=== PATIENT | female | born 2000 | race Caucasian/White ===

== ENCOUNTER 2025-01-23 02:10 | Emergency (ER) | payer OTHER, SELFPAY ==
[2025-01-23] VITALS (8 sets, daily range): BP systolic 113–128; BP diastolic 55–80; PULSE 70–105; RESP 13–18; TEMP 36.1–36.9; O2SAT 95–100; BMI 26.7
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
[2025-01-23] MEDS: diphenhydrAMINE HCL 25 MG CAPSULE 50 MG PO (02:33)
[2025-01-23] MEDS: LORazepam 1 MG TABLET 2 MG PO (02:33)
--- NOTE | 2025-01-23 03:24 | MHC.EDTECH ---
pt refused blood work at this time, they stated they will do them when they wake up and apologized. RNs aware.
[2025-01-23 04:32] LABS: Basophils Absolute Auto 0.1 X10*3/uL (0.0-0.2); Basophils Percent Auto 0.5 % (0-2); Eosinophils Absolute Auto 0.2 X10*3/uL (0.0-0.4); Eosinophils Percent Auto 1.6 % (0-4); Hemoglobin 11.7 g/dl (12.0-16.0); Imm Gran Abs Auto 0.03 X10*3/uL (0.00-0.03); Imm Gran Pct Auto 0.3 % (0.0-0.4); Lymphocytes Absolute Auto 1.1 X10*3/uL (1.2-4.9); Lymphocytes Percent Auto 10.4 % (20-40); MANUAL DIFF FLAG NO; Mean Corpuscular HGB Conc 33.4 g/dl (31.0-35.0); Mean Corpuscular Hemoglobin 29.5 pg (27.0-33.0); Mean Corpuscular Volume 88.2 fL (80.0-98.0); Mean Platelet Volume 8.6 fL (9.4-12.3); Monocytes Absolute Auto 0.6 X10*3/uL (0.1-1.2); Monocytes Percent Auto 5.8 % (2-11); Neutrophils Absolute Auto 8.5 x10*3/uL (2.0-8.3); Neutrophils Percent Auto 81.4 % (45-73); Platelet Count 286 X10*3/uL (160-400); Red Blood Count 3.97 X10*6/uL (4.20-5.50); Red Cell Distribution Width 13.9 % (11.0-16.0); White Blood Count 10.5 X10*3/uL (4.8-10.8)
[2025-01-23 05:01] LABS: Alanine Aminotransferase 10 U/L (0-31); Albumin Level 4.3 g/dL (3.5-5.0); Alkaline Phosphatase 82 U/L (39-117); Anion Gap 13 (12-20); Aspartate Amino Transferase 21 U/L (5-31); Bilirubin Direct 0.2 mg/dL (0.0-0.5); Bilirubin Total 0.4 mg/dL (0.0-1.0); Blood Urea Nitrogen 9 mg/dL (9-16); Calcium 9.3 mg/dL (8.4-10.2); Carbon Dioxide 24 mmol/L (22-29); Chloride 104 mmol/L (96-108); Creatinine Clr Calc Pharmacy 146.1; Estimated Glomerular Filt Rate > 60; Ethanol < 10 mg/dL; Glucose Random 101 mg/dL (60-115); HCG Quantitative < 2 mIU/mL; Magnesium 2.1 mg/dL (1.6-2.6); Potassium 3.7 mmol/L (3.3-5.1); Sodium 137 mmol/L (135-145); Total Protein 7.3 g/dL (6.5-8.0)
--- NOTE | 2025-01-23 08:26 | PC.NURSE ---
pt currently sleeping, rr equal/non labored, vss, call veliz within reach, plan of care ongoing
--- NOTE | 2025-01-23 10:59 | PC.NURSE ---
Patient sleeping at this time. Respirations even/unlabored. Care ongoing by this RN.
--- NOTE | 2025-01-23 12:00 | PC.NURSE ---
Awake, ambulating steadily. Planning for discharge home. Has friend/family member that can stay with her today and pick her up from ED.
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
== END 2025-01-23 14:50 | disposition home or self-care (01) ==
PROVIDERS: Emergency Provider Emergency Medicine
DX: F41.1 Generalized anxiety disorder (principal); F43.0 Acute stress reaction; F14.10 Cocaine abuse, uncomplicated; Z79.899 Other long term (current) drug therapy; Z51.81 Encounter for therapeutic drug level monitoring
CPT/HCPCS: 36415; 80048; 80076; 80307; 83735; 84702; 85025; 99284